=== PATIENT | male | born 2005 | race Caucasian/White ===

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

== ENCOUNTER 2024-03-11 18:14 | Emergency (ER) | payer MEDICAID, OTHER ==
[~2024-03-11] VITALS: Ht 180.3 cm; Wt 109.1 kg
[2024-03-11 18:21] VITALS: BP 132/73; PULSE 68; RESP 18; TEMP 98.5; O2SAT 99
[2024-03-11] MEDS ORDERED: IBUP-1492 PO (22:18)
[2024-03-11] MEDS ORDERED: ACET-3385 PO (22:18)
[2024-03-11] MEDS ORDERED: LIDO700A15 TP (22:18)
[2024-03-11] MEDS: IBUPROFEN 600 MG TABLET PO ONE (22:38)
[2024-03-11] MEDS: ACETAMINOPHEN 500 MG TABLET PO ONE (22:38)
[2024-03-11] MEDS: LIDOCAINE 5% TRANSDERMAL PATCH TD ONE (22:39)
== END 2024-03-11 22:50 | disposition home or self-care (01) ==
LOC: EMS 18:15
DX: M54.16 Radiculopathy, lumbar region (principal)
CPT/HCPCS: 99284; Z7502; Z7610

== ENCOUNTER 2024-08-07 08:16 | Emergency (ER) | payer SELFPAY ==
[~2024-08-07] VITALS: Ht 177.8 cm; Wt 102.3 kg
[~2024-08-07 08:16] MED LIST: ACET-3385 PO; IBUP-1492 PO; LIDO700A15 TP
[2024-08-07 08:19] VITALS: BP 125/83; PULSE 94; RESP 18; TEMP 98.4; O2SAT 99
== END 2024-08-07 10:55 | disposition left against medical advice (07) ==
LOC: EMS 08:18
DX: M79.662 Pain in left lower leg (principal); Z53.21 Procedure and treatment not carried out due to patient leaving prior to being seen by health care provider